=== PATIENT | male | born 1990 | race Two or more races ===

== ENCOUNTER 2019-04-10 21:08 | Emergency (ER) | payer SELFPAY ==
[~2019-04-10] VITALS: Ht 182.9 cm; Wt 86.2 kg
[2019-04-10 21:31] VITALS: BP 144/91
[2019-04-10] MEDS ORDERED: KETOROLAC TROMETH 60MG/2ML VIAL IM ONE (21:45)
[2019-04-10] MEDS ORDERED: cefTRIAXone W LIDOCAINE 1 GM IM IM ONE (21:45)
[2019-04-10] MEDS ORDERED: cefTRIAXone SOD 1,000 MG VL ONE (22:00)
== END 2019-04-10 22:18 | disposition home or self-care (01) ==
LOC: ER 21:12
DX: K02.9 Dental caries, unspecified (principal); Z88.0 Allergy status to penicillin
CPT/HCPCS: 96372; 99283; J0696; J1885